=== PATIENT | male | born 1985 | race Caucasian/White ===

== ENCOUNTER 2018-05-06 18:55 | Emergency (ER) | payer OTHER ==
[~2018-05-06] VITALS: Ht 182.9 cm; Wt 81.6 kg
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
[2018-05-06] MEDS ORDERED: ORPHENADRINE 60 MG/2 ML (NORFLEX) AMP IM ONE (20:15)
[2018-05-06] MEDS ORDERED: CYCL5TAB PO (20:17)
[2018-05-06 20:28] VITALS: BP 126/86
== END 2018-05-06 20:28 | disposition home or self-care (01) ==
LOC: ER 18:57
DX: S09.90XA Unspecified injury of head, initial encounter (principal); S06.0X9A Concussion with loss of consciousness of unspecified duration, initial encounter; S13.9XXA Sprain of joints and ligaments of unspecified parts of neck, initial encounter; G43.909 Migraine, unspecified, not intractable, without status migrainosus; F41.9 Anxiety disorder, unspecified; F32.9 Major depressive disorder, single episode, unspecified; R40.2142 Coma scale, eyes open, spontaneous, at arrival to emergency department; R40.2252 Coma scale, best verbal response, oriented, at arrival to emergency department; R40.2362 Coma scale, best motor response, obeys commands, at arrival to emergency department; F17.210 Nicotine dependence, cigarettes, uncomplicated; V43.52XA Car driver injured in collision with other type car in traffic accident, initial encounter; Y92.411 Interstate highway as the place of occurrence of the external cause
CPT/HCPCS: 70450; 72125

== ENCOUNTER 2019-03-25 14:28 | Emergency (ER) | payer OTHER ==
[~2019-03-25] VITALS: Ht 182 cm; Wt 79.5 kg
[~2019-03-25 14:28] MED LIST: CYCL5TAB PO
--- NOTE | 2019-03-25 14:54 | Diagnostic Imaging Report ---
INDICATION: Chest pain. FINDINGS: The lungs are clear. The heart and vessels normal. There is no effusion or pneumothorax. Calcified benign granulomatous focus in the right lower lung noted. IMPRESSION: No acute appearing abnormality. Dictated by: Dictated on workstation # [id number]
--- NOTE | 2019-03-25 15:05 | NUR ---
Patient resting quietly in bed, shakiness has resolved.
[2019-03-25 15:25] LABS: WHITE BLOOD COUNT 9.7 10^3/uL (4.3-11.0)
[2019-03-25 15:26] LABS: BASOPHILS % (AUTO) 0 % (0-10); EOSINOPHILS # (AUTO) 0.3 10^3/uL (0.0-0.3); EOSINOPHILS % (AUTO) 3 % (0-10); HEMATOCRIT 47 % (40-54); HEMOGLOBIN 15.6 G/DL (13.3-17.7); LYMPHOCYTES # (AUTO) 2.9 X 10^3 (1.0-4.0); LYMPHOCYTES % (AUTO) 30 % (12-44); MEAN CORPUSCULAR HEMOGLOBIN 32 PG (25-34); MEAN CORPUSCULAR HGB CONC 33 G/DL (32-36); MEAN CORPUSCULAR VOLUME 95 FL (80-99); MEAN PLATELET VOLUME 9.1 FL (7.4-10.4); MONOCYTES # (AUTO) 0.7 X 10^3 (0.0-1.0); MONOCYTES % (AUTO) 8 % (0-12); NEUTROPHILS # (AUTO) 5.8 X 10^3 (1.8-7.8); NEUTROPHILS % (AUTO) 59 % (42-75); PLATELET COUNT 309 10^3/uL (130-400); RED CELL DISTRIBUTION WIDTH 13.9 % (10.0-14.5)
[2019-03-25 15:30] LABS: BILIRUBIN,TOTAL 0.5 MG/DL (0.1-1.0); BUN/CREATININE RATIO 11; CALCIUM 9.5 MG/DL (8.5-10.1); CARBON DIOXIDE 28 MMOL/L (21-32); CHLORIDE 101 MMOL/L (98-107); CREATININE SERUM 0.91 MG/DL (0.60-1.30); GFR ESTIMATED > 60; GLUCOSE 103 MG/DL (70-105); POTASSIUM 4.1 MMOL/L (3.6-5.0); SODIUM 139 MMOL/L (135-145)
[2019-03-25 15:31] LABS: ALANINE AMINOTRANSFERASE 12 U/L (0-55); ALBUMIN 4.4 GM/DL (3.2-4.5); ALKALINE PHOSPHATASE 91 U/L (40-136); TOTAL PROTEIN 7.5 GM/DL (6.4-8.2)
--- NOTE | 2019-03-25 15:57 | ED Cardiac General ---
History of Present Illness General Chief Complaint: Chest Pain Stated Complaint: CHEST PAIN Nursing Triage Note: Patient states has had intermittent chest pain for the past 3 days. Woke up with the chest pain at approx 0930 today, described as stabbing over the left chest, left shoulder, and left arm and rated at 4/10. States he was seen in clinic 3 days ago due to not being able to sleep and his blood pressure was elevated but is unsure of the reading. He was not put on hypertension medication but his dose of seroquel was increased and was started on another antidepression medication. Has slept since receiving this medication. Is shaking while answering questions but was able to walk to room without issue. Source: patient, family Exam Limitations: no limitations History of Present Illness Date Seen by Provider: Mar 25, 2019 Time Seen by Provider: 15:52 Initial Comments The patient is a 33-year-old white male who presented with complaints of left- sided chest pain. He did not participate much in the history however his did. She had insisted that he come here after he reported left sided chest pain at about 09 30 this morning shortly after arising. He reported that he had had some chest pain on of this week. He reported that he had gone to his usual provider in [place] on because he had been unable to sleep for several days. His Seroquel dose was increased from 100 mg daily to 200 mg daily and Zoloft was added. He took Zoloft on Tuesday and Tuesday but not today. He has a history of hypertension. Apparently his blood pressure is quite elevated on his visit to the provider however it was not addressed. It is significantly elevated here today. He smokes one pack of cigarettes per day and has a family history of heart disease. He cannot give much in the way of history about the manifestations of this and his relatives. His also reported some difficulty that she had noted in his ability to walk. He answered questions only in monotone and short sentences. He exhibited poor eye contact and mostly gazed at the ceiling. Timing/Duration: 4-6 hours Location: other (left chest and down left arm) Allergies and Home Medications Allergies Coded Allergies: No Known Drug Allergies (Unverified , 05/06/18) Home Medications Cyclobenzaprine HCl 5 Mg Tablet, 5 MG PO TID PRN for MUSCLE SPASMS Prescribed by: CRISTOPHER GARCIA on 11/17/18 2017 Patient Home Medication List Home Medication List Reviewed: Yes Review of Systems Review of Systems Constitutional: see HPI EENTM: No Symptoms Reported Respiratory: No Symptoms Reported Cardiovascular: See HPI, Chest Pain Gastrointestinal: No Symptoms Reported Genitourinary: No Symptoms Reported Musculoskeletal: muscle weakness Skin: no symptoms reported Psychiatric/Neurological: See HPI Endocrine: No Symptoms Reported Hematologic/Lymphatic: No Symptoms Reported Past Grjydok-Fuuuft-Xalbvg Hx Patient Social History Alcohol Use: Occasionally Uses Recreational Drug Use: Yes Drug of Choice: marijuana Type Used: Cigarettes 2nd Hand Smoke Exposure: Yes Recent Foreign Travel: No Contact w/Someone Who Travel: No Recent Infectious Disease Expo: No Recent Hopitalizations: No Physical Abuse: No Sexual Abuse: No Mistreated: No Fear: No Seasonal Allergies Seasonal Allergies: No Past Medical History Surgeries: No Respiratory: No Cardiac: No Neurological: Yes (cluster ANDUJAR) Headaches /Migraines Genitourinary: No Gastrointestinal: No Musculoskeletal: Yes (bulging disks) Chronic Back Pain Endocrine: No HEENT: No Cancer: No Psychosocial: Yes Anxiety, Depression Integumentary: No Blood Disorders: No Adverse Reaction/Blood Tranf: No Physical Exam Vital Signs Vital Signs - First Documented 03/25/19 14:30 Temp 37.4 Pulse 86 Resp 13 B/P (MAP) 158/115 (129) Pulse Ox 98 Capillary Refill : Less Than 3 Seconds Height, Weight, BMI Height: 6'0" Weight: 180lbs. oz. 81.627948bm; 24.00 BMI Method:Stated General Appearance: Other HEENT: Normal ENT Inspection Neck: Normal Inspection Respiratory: Chest Non Tender, Lungs Clear, Normal Breath Sounds, No Accessory Muscle Use, No Respiratory Distress Cardiovascular: Regular Rate, Rhythm, No Edema, No Gallop, No JVD, No Murmur, Normal Peripheral Pulses Gastrointestinal: Normal Bowel Sounds, No Organomegaly, No Pulsatile Mass, Non Tender Extremity: Normal Capillary Refill, Normal Inspection, Normal Range of Motion, Non Tender, No Calf Tenderness, No Pedal Edema Neurologic/Psychiatric: Alert, Oriented x3, No Motor/Sensory Deficits, Normal Mood/Affect Skin: Normal Color, Warm/Dry Lymphatic: No Adenopathy Progress/Results/Core Measures Results/Orders Lab Results Laboratory Tests Test 03/25/19 14:40 Range/Units White Blood Count 9.7 4.3-11.0 10^3/uL Red Blood Count 4.90 4.35-5.85 10^6/uL Hemoglobin 15.6 13.3-17.7 G/DL Hematocrit 47 40-54 % Mean Corpuscular Volume 95 80-99 FL Mean Corpuscular Hemoglobin 32 25-34 PG Mean Corpuscular Hemoglobin Concent 33 32-36 G/DL Red Cell Distribution Width 13.9 10.0-14.5 % Platelet Count 309 130-400 10^3/uL Mean Platelet Volume 9.1 7.4-10.4 FL Neutrophils (%) (Auto) 59 42-75 % Lymphocytes (%) (Auto) 30 12-44 % Monocytes (%) (Auto) 8 0-12 % Eosinophils (%) (Auto) 3 0-10 % Basophils (%) (Auto) 0 0-10 % Neutrophils # (Auto) 5.8 1.8-7.8 X 10^3 Lymphocytes # (Auto) 2.9 1.0-4.0 X 10^3 Monocytes # (Auto) 0.7 0.0-1.0 X 10^3 Eosinophils # (Auto) 0.3 0.0-0.3 10^3/uL Basophils # (Auto) 0.0 0.0-0.1 10^3/uL Sodium Level 139 135-145 MMOL/L Potassium Level 4.1 3.6-5.0 MMOL/L Chloride Level 101 98-107 MMOL/L Carbon Dioxide Level 28 21-32 MMOL/L Anion Gap 10 5-14 MMOL/L Blood Urea Nitrogen 10 7-18 MG/DL Creatinine 0.91 0.60-1.30 MG/DL Estimat Glomerular Filtration Rate > 60 BUN/Creatinine Ratio 11 Glucose Level 103 70-105 MG/DL Calcium Level 9.5 8.5-10.1 MG/DL Corrected Calcium 9.2 8.5-10.1 MG/DL Total Bilirubin 0.5 0.1-1.0 MG/DL Aspartate Amino Transf (AST/SGOT) 16 5-34 U/L Alanine Aminotransferase (ALT/SGPT) 12 0-55 U/L Alkaline Phosphatase 91 40-136 U/L Troponin I < 0.30 <0.30 NG/ML Total Protein 7.5 6.4-8.2 GM/DL Albumin 4.4 3.2-4.5 GM/DL My Orders Orders - CONNIE FERRER MD Cbc With Automated Diff (03/25/19 14:30) Comprehensive Metabolic Panel (03/25/19 14:30) Ekg Tracing (03/25/19 14:32) Chest 1 View Ap/Pa Only (03/25/19 14:32) Troponin I Fs (03/25/19 15:30) Vital Signs/I&O 03/25/19 14:30 Temp 37.4 Pulse 86 Resp 13 B/P (MAP) 158/115 (129) Pulse Ox 98 Blood Pressure Mean: 129 Departure Communication (Admissions) 1639 blood pressure has normalized. The patient laboratory is normal. He was walked down the hallway and showed a rather uneven gait but no evidence for fear of falling. He complained of tightness in his right hamstrings. His confirms that he has had gait abnormalities at times going back at least 4 years. 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 He took Depakote for a period of time but this did not seem to change anything with regard to the difficulties described. She also states that he is not currently taking anything for hypertension. It was discussed relative to the likelihood of neurology consult. They are planning to be here only for 1 week and it would be better to pursue this on return to [place]. For the moment I will add an antihypertensive. Impression Primary Impression: chest pain non-myocardial Additional Impression: hypertension Disposition: 01 HOME, SELF-CARE Condition: Stable/Unchanged Departure-Patient Inst. Decision time for Depature: 16:39 Referrals: NO,LOCAL PHYSICIAN (PCP) Primary Care Physician Patient Instructions: Chest Pain That Is Not Caused by the Heart (DC) CONNIE FERRER MD Mar 25, 2019 15:57
[2019-03-25] MEDS ORDERED: METO-370 PO (16:44)
[2019-03-25 16:48] VITALS: BP 126/100
== END 2019-03-25 16:52 | disposition home or self-care (01) ==
LOC: EDUNIT# 14:28 → ER FS 14:30
DX: R07.89 Other chest pain (principal); I10 Essential (primary) hypertension; G43.909 Migraine, unspecified, not intractable, without status migrainosus; F41.9 Anxiety disorder, unspecified; F32.9 Major depressive disorder, single episode, unspecified; F17.210 Nicotine dependence, cigarettes, uncomplicated; Z82.49 Family history of ischemic heart disease and other diseases of the circulatory system
CPT/HCPCS: 36415; 71045; 80053; 84484; 85025; 93005

== ENCOUNTER 2020-06-19 13:49 | Emergency (ER) | payer OTHER ==
[~2020-06-19 13:49] MED LIST changes: +METO50TA7 PO
[2020-06-19] MEDS ORDERED: morphine INJ 10 MG/ML 1ML (SYR OR VIAL) IVP STA (14:03)
[2020-06-19] MEDS ORDERED: NS IV 1000 ML 1,000 ML IV SCH (14:15)
[2020-06-19] MEDS ORDERED: ONDANSETRON 4 MG/2 ML (SDV) Z0FRAN IVP ONE (14:15)
--- NOTE | 2020-06-19 14:22 | ED General ---
General Chief Complaint: Abdominal/GI Problems Stated Complaint: ABD PAIN History of Present Illness Date Seen by Provider: Jun 19, 2020 Time Seen by Provider: 14:20 Initial Comments Patient presenting to the emergency department for evaluation of abdominal pain that started approximately 5:00 this morning and has persisted throughout the entire day. Patient describes it as a pressure sensation throughout the entire abdomen but is worse in the bilateral lower quadrants and possibly left lower quadrants and radiates to his epigastrium. He says he has had some nausea but no fevers chills vomiting diarrhea constipation dysuria hematuria or testicular pain. He denies any prior abdominal surgeries. He appears uncomfortable but is nontoxic. Allergies and Home Medications Allergies Coded Allergies: No Known Drug Allergies (Unverified , 05/06/18) Home Medications Cyclobenzaprine HCl 5 Mg Tablet, 5 MG PO TID PRN for MUSCLE SPASMS Prescribed by: CRISTOPHER GARCIA on 05/06/182016 Metoprolol Succinate 50 Mg Tab.er.24h, 50 MG PO DAILY Prescribed by: CONNIE FERRER on 03/25/19 1644 Patient Home Medication List Home Medication List Reviewed: Yes Review of Systems Review of Systems Constitutional: no symptoms reported EENTM: no symptoms reported Respiratory: no symptoms reported Cardiovascular: no symptoms reported Gastrointestinal: abdominal pain, nausea Genitourinary: no symptoms reported Musculoskeletal: no symptoms reported Skin: no symptoms reported Psychiatric/Neurological: No Symptoms Reported All Other Systems Reviewed Negative Unless Noted: Yes Past Czmuafd-Gnztmc-Quxdhx Hx Patient Social History Drug of Choice: marijuana Type Used: Cigarettes 2nd Hand Smoke Exposure: Yes Recent Foreign Travel: No Contact w/Someone Who Travel: No Recent Hopitalizations: No Seasonal Allergies Seasonal Allergies: No Past Medical History Surgeries: No Respiratory: No Cardiac: No Neurological: Yes (cluster ANDUJAR) Headaches /Migraines Genitourinary: No Gastrointestinal: No Musculoskeletal: Yes (bulging disks) Chronic Back Pain Endocrine: No HEENT: No Cancer: No Psychosocial: Yes Anxiety, Depression Integumentary: No Blood Disorders: No Adverse Reaction/Blood Tranf: No Physical Exam Vital Signs Vital Signs - First Documented 06/19/20 13:57 Temp 37.3 Pulse 85 Resp 16 B/P (MAP) 134/84 (101) Pulse Ox 97 O2 Delivery Room Air Capillary Refill : Height, Weight, BMI Height: 6'0" Weight: 180lbs. oz. 81.889852be; 24.00 BMI Method:Stated General Appearance: No Apparent Distress, WD/WN HEENT: PERRL/EOMI Neck: Supple Respiratory: No Respiratory Distress Cardiovascular: Regular Rate, Rhythm Gastrointestinal: Soft, Tenderness (diffuse abdominal tenderness to palpation with left lower quadrant tenderness more prominent but no rebound or guarding) Back: Normal Inspection Extremity: Normal Capillary Refill Neurologic/Psychiatric: Alert, Oriented x3 Skin: Warm/Dry Progress/Results/Core Measures Suspected Sepsis SIRS Temperature: Pulse: Respiratory Rate: Laboratory Tests 06/19/20 14:10: White Blood Count 11.8H Blood Pressure / Mean: Laboratory Tests 06/19/20 14:10: Creatinine 1.15, Platelet Count 249, Total Bilirubin 0.5 Results/Orders Lab Results Laboratory Tests Test 06/19/20 14:10 06/19/20 14:38 Range/Units White Blood Count 11.8 H 4.3-11.0 10^3/uL Red Blood Count 4.10 L 4.35-5.85 10^6/uL Hemoglobin 13.0 L 13.3-17.7 G/DL Hematocrit 38 L 40-54 % Mean Corpuscular Volume 92 80-99 FL Mean Corpuscular Hemoglobin 32 25-34 PG Mean Corpuscular Hemoglobin Concent 34 32-36 G/DL Red Cell Distribution Width 13.1 10.0-14.5 % Platelet Count 249 130-400 10^3/uL Mean Platelet Volume 9.5 7.4-10.4 FL Immature Granulocyte % (Auto) 0 % Neutrophils (%) (Auto) 66 42-75 % Lymphocytes (%) (Auto) 21 12-44 % Monocytes (%) (Auto) 8 0-12 % Eosinophils (%) (Auto) 5 0-10 % Basophils (%) (Auto) 0 0-10 % Neutrophils # (Auto) 7.8 1.8-7.8 X 10^3 Lymphocytes # (Auto) 2.5 1.0-4.0 X 10^3 Monocytes # (Auto) 0.9 0.0-1.0 X 10^3 Eosinophils # (Auto) 0.6 H 0.0-0.3 10^3/uL Basophils # (Auto) 0.0 0.0-0.1 10^3/uL Immature Granulocyte # (Auto) 0.0 0.0-0.1 10^3/uL Sodium Level 137 135-145 MMOL/L Potassium Level 3.8 3.6-5.0 MMOL/L Chloride Level 101 98-107 MMOL/L Carbon Dioxide Level 23 21-32 MMOL/L Anion Gap 13 5-14 MMOL/L Blood Urea Nitrogen 4 L 7-18 MG/DL Creatinine 1.15 0.60-1.30 MG/DL Estimat Glomerular Filtration Rate > 60 BUN/Creatinine Ratio 3 Glucose Level 125 H 70-105 MG/DL Calcium Level 9.1 8.5-10.1 MG/DL Corrected Calcium 9.0 8.5-10.1 MG/DL Total Bilirubin 0.5 0.1-1.0 MG/DL Aspartate Amino Transf (AST/SGOT) 22 5-34 U/L Alanine Aminotransferase (ALT/SGPT) 22 0-55 U/L Alkaline Phosphatase 93 40-136 U/L Total Protein 7.0 6.4-8.2 GM/DL Albumin 4.1 3.2-4.5 GM/DL Lipase 16 8-78 U/L Urine Color YELLOW Urine Clarity CLEAR Urine pH 7.5 5-9 Urine Specific [place] 1.015 L 1.016-1.022 Urine Protein NEGATIVE NEGATIVE Urine Glucose (UA) NEGATIVE NEGATIVE Urine Ketones NEGATIVE NEGATIVE Urine Nitrite NEGATIVE NEGATIVE Urine Bilirubin NEGATIVE NEGATIVE Urine Urobilinogen 0.2 < = 1.0 MG/DL Urine Leukocyte Esterase NEGATIVE NEGATIVE Urine RBC (Auto) NEGATIVE NEGATIVE Urine RBC NONE /HPF Urine WBC 2-5 /HPF Urine Squamous Epithelial Cells 0-2 /HPF Urine Crystals NONE /LPF Urine Bacteria NEGATIVE /HPF Urine Casts NONE /LPF Urine Mucus NEGATIVE /LPF Urine Culture Indicated NO My Orders Orders - YVONNE FISHER DO Cbc With Automated Diff (06/19/20 14:03) Comprehensive Metabolic Panel (06/19/20 14:03) Lipase (06/19/20 14:03) Ua Culture If Indicated (06/19/20 14:03) Ct Abdomen/Pelvis W (06/19/20 14:03) Iv/Invasive Line Insertion .IV start (06/19/20 14:03) Ns Iv 1000 Ml (Sodium Chloride 0.9%) (06/19/20 14:15) Ondansetron Injection (Zofran Injectio (06/19/20 14:15) Morphine Injection (Morphine Injection (06/19/20 14:03) Sodium Chloride Flush (Catheter Flush Sy (06/19/20 15:00) Ns (Ivpb) (Sodium Chloride 0.9% Ivpb Bag (06/19/20 15:00) Iohexol Injection (Omnipaque 350 Mg/Ml 1 (06/19/20 15:00) Received Contrast (Hold Metformin- Contr (06/19/20 15:00) Medications Given in ED Current Medications Medications Dose Ordered Sig/Dannielle Route Start Time Stop Time Status Last Admin Dose Admin Iohexol 100 ml ONCE ONCE IV 06/19/20 15:00 06/19/20 15:01 DC 06/19/20 15:15 100 ML Ondansetron HCl 4 mg ONCE ONCE IVP 06/19/20 14:15 06/19/20 14:16 DC 06/19/20 15:25 4 MG Sodium Chloride 10 ml NEEDED PRN IV 06/19/20 15:00 06/19/20 15:15 10 ML Sodium Chloride 100 ml ONCE ONCE IV 06/19/20 15:00 06/19/20 15:01 DC 06/19/20 15:15 100 ML Vital Signs/I&O 06/19/20 13:57 Temp 37.3 Pulse 85 Resp 16 B/P (MAP) 134/84 (101) Pulse Ox 97 O2 Delivery Room Air Capillary Refill : Progress Note : Progress Note Patient with diffuse abdominal tenderness to palpation so I will check labs CT imaging treat symptoms and reassess. Patient's labs show mild leukocytosis but no other laboratory and abdomen on he noted. The CT does show diffuse constipation but no surgical pathology. Pain improved and repeat abdominal exam is benign with no focal pain rebound or guarding. Will treat with laxatives and stool softeners and told him to follow primary care provider within 3-4 days for recheck and come back to the ED sooner with worsening pain fevers vomiting or other general concerns. Patient aware and agreeable with plan for discharge and verbalized understanding of the above instructions. Departure Impression Primary Impression: Abdominal pain Qualified Codes: R10.13 - Epigastric pain Additional Impressions: Constipation Qualified Codes: K59.00 - Constipation, unspecified Leukocytosis Disposition: HOME, SELF-CARE Condition: Stable Departure-Patient Inst. Referrals: SELF,MORRO BARCENAS (PCP/Family) Primary Care Physician Patient Instructions: Constipation, Adult (DC) Add. Discharge Instructions: Drink plenty of water and eat a high fiber diet and no junk food. Take otc stool softeners such as colace. Follow with PCP on tuesday. Thank you! All discharge instructions reviewed with patient and/or family. Voiced understanding. Scripts Polyethylene Glycol 3350 (Miralax) 17 Gm Powd.pack 17 GM PO BID for 5 Days, EACH Prov: YVONNE FISHER DO 06/19/20 YVONNE FISHER DO Jun 19, 2020 14:22
[2020-06-19 14:39] LABS: HEMATOCRIT 38 % (40-54); MEAN CORPUSCULAR HEMOGLOBIN 32 PG (25-34); MEAN CORPUSCULAR VOLUME 92 FL (80-99); WHITE BLOOD COUNT 11.8 10^3/uL (4.3-11.0)
[2020-06-19 14:40] LABS: BASOPHILS % (AUTO) 0 % (0-10); EOSINOPHILS # (AUTO) 0.6 10^3/uL (0.0-0.3); EOSINOPHILS % (AUTO) 5 % (0-10); LYMPHOCYTES # (AUTO) 2.5 X 10^3 (1.0-4.0); LYMPHOCYTES % (AUTO) 21 % (12-44); MEAN CORPUSCULAR HGB CONC 34 G/DL (32-36); MEAN PLATELET VOLUME 9.5 FL (7.4-10.4); MONOCYTES # (AUTO) 0.9 X 10^3 (0.0-1.0); MONOCYTES % (AUTO) 8 % (0-12); NEUTROPHILS # (AUTO) 7.8 X 10^3 (1.8-7.8); NEUTROPHILS % (AUTO) 66 % (42-75); PLATELET COUNT 249 10^3/uL (130-400)
[2020-06-19] MEDS ORDERED: IOHEXOL 350 MG/ML 100 ML (OMNIPAQUE 350) VIAL IV ONE (15:00)
[2020-06-19] MEDS ORDERED: CATHETER FLUSH 10 ML SYR IV PRN (15:00)
[2020-06-19] MEDS ORDERED: HOLD METFORMIN - RECEIVED CONTRAST 20 ML VIAL IV SCH (15:00)
[2020-06-19] MEDS ORDERED: NS 100 ML (IVPB) BAG IV ONE (15:00)
[2020-06-19 15:01] LABS: CLARITY,URINE CLEAR; COLOR,URINE YELLOW; GLUCOSE, URINE (UA) NEGATIVE (NEGATIVE); PH,URINE 7.5 (5-9); PROTEIN,URINE NEGATIVE (NEGATIVE)
[2020-06-19 15:02] LABS: BACTERIA,URINE NEGATIVE /HPF; BILIRUBIN,URINE NEGATIVE (NEGATIVE); KETONES,URINE NEGATIVE (NEGATIVE); LEUKOCYTE ESTERASE ,URINE NEGATIVE (NEGATIVE); NITRITE,URINE NEGATIVE (NEGATIVE); SQUAMOUS EPITHELIAL CELL,UR 0-2 /HPF
[2020-06-19 15:09] LABS: CARBON DIOXIDE 23 MMOL/L (21-32); CHLORIDE 101 MMOL/L (98-107); SODIUM 137 MMOL/L (135-145)
[2020-06-19 15:10] LABS: ALANINE AMINOTRANSFERASE 22 U/L (0-55); ALKALINE PHOSPHATASE 93 U/L (40-136); BILIRUBIN,TOTAL 0.5 MG/DL (0.1-1.0); BUN/CREATININE RATIO 3; CALCIUM 9.1 MG/DL (8.5-10.1); CREATININE SERUM 1.15 MG/DL (0.60-1.30); GFR ESTIMATED > 60; GLUCOSE 125 MG/DL (70-105)
[2020-06-19 15:11] LABS: ALBUMIN 4.1 GM/DL (3.2-4.5); POTASSIUM 3.8 MMOL/L (3.6-5.0)
[2020-06-19 15:12] LABS: LIPASE 16 U/L (8-78)
--- NOTE | 2020-06-19 15:49 | Diagnostic Imaging Report ---
EXAMINATION: CT Abdomen and Pelvis with intravenous contrast. TECHNIQUE: Multiple contiguous axial images were obtained through the abdomen and pelvis after the uneventful administration of intravenous contrast. All CT scans use one or more of the following dose optimizing techniques: automated exposure control, MA and/or KvP adjustment based on a patient size and exam type, or iterative reconstruction. HISTORY: diffuse pain COMPARISON: None available. FINDINGS: Lung bases: Bibasilar dependent atelectasis. Calcified granuloma within the right lower lobe. Solid organs: The liver is normal without focal lesion. The gallbladder is normal. There is no biliary ductal dilation. Pancreas is normal. Spleen is normal. Adrenal glands are normal. The kidneys are normal without hydronephrosis. A right renal cyst is present and requires no follow-up. Bowel: The stomach and small bowel are normal without obstruction. There is a large volume of stool throughout the colon. No findings of acute appendicitis. Peritoneum: There is no intraperitoneal free fluid or free air. No suspicious lymphadenopathy. Vasculature: Normal without aneurysm. Musculoskeletal: No suspicious osseous lesion or compression fracture. Pelvis: The prostate gland is normal. The urinary bladder is normal. IMPRESSION: 1. No acute abnormality in the abdomen or pelvis. 2. Large stool burden throughout the colon which can be seen in the clinical setting of constipation. Dictated by: Dictated on workstation # [id number]
[2020-06-19] MEDS ORDERED: POLY17PO6 PO (16:15)
[2020-06-19 16:32] VITALS: BP 134/84
== END 2020-06-19 16:32 | disposition home or self-care (01) ==
LOC: EDUNIT# 13:49 → ER FS 13:51
DX: R10.84 Generalized abdominal pain (principal); K59.00 Constipation, unspecified; D72.829 Elevated white blood cell count, unspecified; Z77.22 Contact with and (suspected) exposure to environmental tobacco smoke (acute) (chronic)
CPT/HCPCS: 36415; 74177; 80053; 81000; 83690; 85025; 85027

== ENCOUNTER 2023-05-08 14:29 | Emergency (ER) | payer OTHER ==
[~2023-05-08] VITALS: Ht 182 cm; Wt 73.0 kg
[~2023-05-08 14:29] MED LIST changes: +POLY17PO6 PO
[2023-05-08] MEDS ORDERED: PANTOPRAZOLE INJECTION 40 MG VIAL IV STA (14:44)
[2023-05-08] MEDS ORDERED: NS IV 1000 ML 1,000 ML IV STA (14:44)
[2023-05-08] MEDS ORDERED: ONDANSETRON INJECTION 4 MG/2 ML (SDV) IVP STA (14:44)
[2023-05-08 14:47] VITALS: BP 98/66
[2023-05-08 14:47] LABS: BASOPHILS # (AUTO) 0.1 10^3/uL (0.0-0.1); BASOPHILS % (AUTO) 0 % (0-10); EOSINOPHILS # (AUTO) 0.1 10^3/uL (0.0-0.3); EOSINOPHILS % (AUTO) 1 % (0-10); HEMATOCRIT 40 % (40-54); HEMOGLOBIN 13.3 g/dL (13.3-17.7); LYMPHOCYTES # (AUTO) 4.6 10^3/uL (1.0-4.0); LYMPHOCYTES % (AUTO) 27 % (12-44); MEAN CORPUSCULAR HEMOGLOBIN 33 pg (25-34); MEAN CORPUSCULAR HGB CONC 33 g/dL (32-36); MEAN CORPUSCULAR VOLUME 101 fL (80-99); MEAN PLATELET VOLUME 9.2 fL (9.0-12.2); MONOCYTES # (AUTO) 0.8 10^3/uL (0.0-1.0); MONOCYTES % (AUTO) 5 % (0-12); NEUTROPHILS # (AUTO) 11.4 10^3/uL (1.8-7.8); NEUTROPHILS % (AUTO) 67 % (42-75); PLATELET COUNT 300 10^3/uL (130-400)
--- NOTE | 2023-05-08 14:51 | ED GI ---
General Chief Complaint: Abdominal/GI Problems Stated Complaint: HEMATEMESIS Source of Information: Patient, Spouse History of Present Illness Date Seen by Provider: May 08, 2023 Time Seen by Provider: 14:33 Initial Comments 38-year-old male presenting by private vehicle with complaints of vomiting blood with clots since last night. He had thrown up into the sink as well as some toilet with blood and clots as well as some coffee-ground appearing substance just prior to coming to the emergency department. He states he had been throwing up since last night intermittently. He was feeling weak and "drained. He also felt like he was feeling cold at times. He does have a history of ulcers and used to take Nexium but is not taking it any longer. He states he is only taking lisinopril as a blood pressure medicine. He denies allergies to any medications. He denies any abdominal surgeries in the past. He does drink alcohol and states that he last had tea with liquor mixed into it yesterday. He did have some left-sided abdominal pain but it is not currently hurting on arrival to the ED. He denies having any dark tarry stools or blood in his stool. He denies any pain or burning with urination and no blood in his urine. His primary care provider is Dr. Nelson out of [place]. Timing/Duration: 12-24 Hours Severity/Quality: Mild, Aching Location: LUQ, LLQ Radiation: No Radiation Activities at Onset: None Modifying Factors: Worsens With Vomiting Associated Symptoms: No Back Pain, No Chest Pain, No Diaphoresis; Fatigue; No Headache, No Heartburn; Nausea/Vomiting; No Rash, No Shortness of Air, No Swelling/Mass in Abdomen, No Syncope; Weakness Allergies and Home Medications Allergies Coded Allergies: No Known Drug Allergies (Unverified , 05/06/18) Patient Home Medication List Home Medication List Reviewed: Yes Ondansetron (Ondansetron Odt) 4 Mg Tab.rapdis, 4 MG PO Q6H PRN for NAUSEA/VOMITING Prescribed by: ROSEMARY SEARS on 05/08/23 122 Pantoprazole Sodium (Pantoprazole Sodium) 40 Mg Tablet.dr 40 MG PO DAILY Prescribed by: ROSEMARY SEARS on 05/08/23 3620 Discontinued Medications Cyclobenzaprine HCl (Cyclobenzaprine HCl) 5 Mg Tablet, 5 MG PO TID PRN for MUSCLE SPASMS Prescribed by: CRISTOPHER GARCIA on 05/06/182016 Last Action: Discontinued Metoprolol Succinate (Metoprolol Succinate) 50 Mg Tab.er.24h, 50 MG PO DAILY Prescribed by: CONNIE FERRER on 03/25/19 1644 Last Action: Discontinued Polyethylene Glycol 3350 (Miralax) 17 Gm Powd.pack, 17 GM PO BID Prescribed by: YVONNE FISHER on 06/19/20 1615 Last Action: Discontinued Review of Systems Review of Systems Constitutional: chills; No fever; weakness EENTM: No Symptoms Reported Respiratory: No Symptoms Reported Cardiovascular: No Symptoms Reported Gastrointestinal: See HPI Genitourinary: No Symptoms Reported Musculoskeletal: no symptoms reported Skin: no symptoms reported Psychiatric/Neurological: No Symptoms Reported Past Yywfjvv-Wlxxtc-Sulxck Hx Patient Social History Tobacco Use?: Yes Substance use?: Yes Substance type: Marijuana Alcohol Use?: Yes Alcohol type: Hard Liquor Seasonal Allergies Seasonal Allergies: No Past Medical History Surgery/Hospitalization HX: Hypertension Surgeries: No Respiratory: No Cardiac: Yes High Cholesterol, Hypertension Neurological: Yes (cluster ANDUJAR) Headaches /Migraines Genitourinary: No Gastrointestinal: No Musculoskeletal: Yes (bulging disks) Chronic Back Pain Endocrine: No HEENT: No Cancer: No Psychosocial: Yes Sleep Difficulties, Anxiety, Depression Integumentary: No Blood Disorders: No Adverse Reaction/Blood Tranf: No Physical Exam Vital Signs Vital Signs - First Documented 05/08/23 14:47 Pulse 98 Resp 16 B/P (MAP) 98/66 (77) Pulse Ox 99 O2 Delivery Room Air Capillary Refill : Height/Weight/BMI Height: 6'0" Weight: 180lbs. oz. 81.058807ru; 24.00 BMI Method:Stated General Appearance: no apparent distress HEENT: PERRL/EOMI, pharynx normal Respiratory: chest non-tender, lungs clear, normal breath sounds, no respiratory distress, no accessory muscle use Cardiovascular: normal peripheral pulses, regular rate, rhythm Gastrointestinal: normal bowel sounds, non tender, soft, no pulsatile mass Rectal: deferred Extremities: normal range of motion, non-tender, normal capillary refill Neurologic/Psychiatric: alert, oriented x 3 Skin: normal color, warm/dry Progress/Results/Core Measures Results/Orders Lab Results Laboratory Tests Test 05/08/23 14:36 05/08/23 14:46 05/08/23 16:00 Range/Units White Blood Count 17.0 H 4.3-11.0 10^3/uL Red Blood Count 4.02 L 4.30-5.52 10^6/uL Hemoglobin 13.3 12.7 L 13.3-17.7 g/dL Hematocrit 40 38 L 40-54 % Mean Corpuscular Volume 101 H 80-99 fL Mean Corpuscular Hemoglobin 33 25-34 pg Mean Corpuscular Hemoglobin Concent 33 32-36 g/dL Red Cell Distribution Width 13.8 10.0-14.5 % Platelet Count 300 130-400 10^3/uL Mean Platelet Volume 9.2 9.0-12.2 fL Immature Granulocyte % (Auto) 0 % Neutrophils (%) (Auto) 67 42-75 % Lymphocytes (%) (Auto) 27 12-44 % Monocytes (%) (Auto) 5 0-12 % Eosinophils (%) (Auto) 1 0-10 % Basophils (%) (Auto) 0 0-10 % Neutrophils # (Auto) 11.4 H 1.8-7.8 10^3/uL Lymphocytes # (Auto) 4.6 H 1.0-4.0 10^3/uL Monocytes # (Auto) 0.8 0.0-1.0 10^3/uL Eosinophils # (Auto) 0.1 0.0-0.3 10^3/uL Basophils # (Auto) 0.1 0.0-0.1 10^3/uL Immature Granulocyte # (Auto) 0.1 0.0-0.1 10^3/uL Neutrophils % (Manual) 62 % Lymphocytes % (Manual) 35 % Monocytes % (Manual) 3 % Prothrombin Time 13.2 12.2-14.7 SEC INR Comment 1.0 0.8-1.4 Activated Partial Thromboplast Time 24 24-35 SEC Sodium Level 138 135-145 MMOL/L Potassium Level 4.2 3.6-5.0 MMOL/L Chloride Level 101 98-107 MMOL/L Carbon Dioxide Level 27 21-32 MMOL/L Anion Gap 10 5-14 MMOL/L Blood Urea Nitrogen 30 H 7-18 MG/DL Creatinine 0.99 0.60-1.30 MG/DL Estimat Glomerular Filtration Rate 99 BUN/Creatinine Ratio 30 Glucose Level 128 H 70-105 MG/DL Calcium Level 8.9 8.5-10.1 MG/DL Corrected Calcium 8.9 8.5-10.1 MG/DL Total Bilirubin 0.7 0.1-1.0 MG/DL Aspartate Amino Transf (AST/SGOT) 14 5-34 U/L Alanine Aminotransferase (ALT/SGPT) 9 0-55 U/L Alkaline Phosphatase 97 40-136 U/L Total Protein 6.9 6.4-8.2 GM/DL Albumin 4.0 3.2-4.5 GM/DL Lipase 15 8-78 U/L Serum Alcohol < 10 <10 MG/DL Urine Color YELLOW Urine Clarity CLEAR Urine pH 7.0 5-9 Urine Specific [place] <=1.005 1.016-1.022 Urine Protein NEGATIVE NEGATIVE Urine Glucose (UA) NEGATIVE NEGATIVE Urine Ketones NEGATIVE NEGATIVE Urine Nitrite NEGATIVE NEGATIVE Urine Bilirubin NEGATIVE NEGATIVE Urine Urobilinogen 0.2 < = 1.0 MG/DL Urine Leukocyte Esterase NEGATIVE NEGATIVE Urine RBC (Auto) NEGATIVE NEGATIVE Urine RBC RARE /HPF Urine WBC NONE /HPF Urine Squamous Epithelial Cells 2-5 /HPF Urine Crystals NONE /LPF Urine Bacteria TRACE /HPF Urine Casts PRESENT /LPF Urine Hyaline Casts 0-2 H /LPF Urine Mucus MODERATE H /LPF Urine Culture Indicated NO Urine Opiates Screen NEGATIVE NEGATIVE Urine Oxycodone Screen NEGATIVE NEGATIVE Urine Methadone Screen NEGATIVE NEGATIVE Urine Barbiturates Screen NEGATIVE NEGATIVE Ur Tricyclic Antidepressants Screen NEGATIVE NEGATIVE Urine Phencyclidine Screen NEGATIVE NEGATIVE Urine Amphetamines Screen NEGATIVE NEGATIVE Urine Methamphetamines Screen NEGATIVE NEGATIVE Urine Benzodiazepines Screen POSITIVE H NEGATIVE Urine Cocaine Screen NEGATIVE NEGATIVE Urine Cannabinoids Screen POSITIVE H NEGATIVE My Orders Orders - ROSEMARY SEARS MD Comprehensive Metabolic Panel (05/08/23 14:43) Lipase (05/08/23 14:43) Ua Culture If Indicated (05/08/23 14:43) Ed Iv/Invasive Line Start (05/08/23 14:43) Cbc And Automated Diff (05/08/23 14:43) Ct Abdomen/Pelvis W (05/08/23 14:43) Protime With Inr (05/08/23 14:43) Partial Thromboplastin Time (05/08/23 14:43) Alcohol (05/08/23 14:43) Drug Screen Stat (Urine) (05/08/23 14:43) Ns Iv 1000 Ml (Ns Iv 1000 Ml) (05/08/23 14:44) Pantoprazole Injection (Pantoprazole Inj (05/08/23 14:44) Ondansetron Injection (Ondansetron Inj (05/08/23 14:44) Manual Differential (05/08/23 14:36) Iohexol Injection (Omnipaque 350 Mg/Ml 1 (05/08/23 15:00) Received Contrast (Hold Metformin- Contr (05/08/23 15:00) Ns (Ivpb) 100 Ml (Sodium Chloride 0.9% 1 (05/08/23 15:00) Hemoglobin (05/08/23 15:57) Hematocrit (05/08/23 15:57) Medications Given in ED Current Medications Medications Dose Ordered Sig/Dannielle Route Start Time Stop Time Status Last Admin Dose Admin Iohexol 80 ml ONCE ONCE IV 05/08/23 15:00 05/08/23 15:01 DC 05/08/23 15:03 80 ML Sodium Chloride 100 ml ONCE ONCE IV 05/08/23 15:00 05/08/23 15:01 DC 05/08/23 15:03 80 ML Vital Signs/I&O 05/08/23 14:47 Pulse 98 Resp 16 B/P (MAP) 98/66 (77) Pulse Ox 99 O2 Delivery Room Air Progress Progress Note #1: Progress Note Differential diagnosis includes peptic ulcer disease, gastritis, alcohol abuse, liver failure, June-Jeffries tear, anemia. Establish peripheral IV access and send labs for complete blood count, comprehensive metabolic profile, lipase, pro time/INR, PTT, EtOH, urinalysis, urine drug screen. CT scan of the abdomen and pelvis with IV contrast to look for acute pathology that would contribute to hematemesis. Administer normal saline 1 L IV fluid bolus for hydration, Zofran 4 mg IV for nausea and vomiting, pantoprazole 40 mg IV for possible gastritis or peptic ulcer disease. Progress Note #2: Time: 15:35 Progress Note Complete blood count showed a stable hemoglobin of 13.3 with 300 platelets. On June 19, 2020 his hemoglobin was 13 at that time. He does currently have an elevated white blood cell count of 17,000 which may be more of a stress reaction as he is not exhibiting other signs of infection. His comprehensive metabolic profile did not show any acute significant electrolyte abnormality. He had a slight elevation of his BUN to 30 and a creatinine of 0.99. Lipase was normal at 15. The BUN might be slightly elevated from dehydration or it could be that he is metabolizing blood in his GI tract. Alcohol level was less than 10 and his coagulation factors were normal. His CT scan of the abdomen and pelvis did not show any obstruction on her perforation or free air. He did have some thickening of the gastric wall and part of his stomach which could go with gastritis. He has had no emesis here in the ED and is hemodynamically stable. Will recheck hgb to ensure it has not dropped drastically and have patient continue on Pantoprazole. Follow up with Dr. Nelson as he likely needs EGD to look for PUD. Liquid diet for 24-48 hours to let his stomach rest and heal and then follow a bland diet. Progress Note #3: Time: 16:14 Progress Note Hemoglobin went down slightly to 12.7 from 13.3. He is hemodynamically stable otherwise. Will discharge as planned above. 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 Advised if he has worsening symptoms or is having uncontrollable hematemesis he needs to be seen again. Diagnostic Imaging Diagonstic Imaging: CT Plain Films/CT/US/NM/MRI: abdomen, pelvis Comments NAME: JANES CONNELLY [facility] REC#: [id number] PT STATUS: REG ER : 1985 PHYSICIAN: ROSEMARY SEARS MD ADMIT DATE: 05/08/23/ER FS Draft Date of Exam:05/08/23 CT ABDOMEN/PELVIS W PROCEDURE: CT abdomen and pelvis with contrast. TECHNIQUE: Multiple contiguous axial images were obtained through the abdomen and pelvis after administration of intravenous contrast. Auto Exposure Controls were utilized during the CT exam to meet ALARA standards for radiation dose reduction. All CT scans use one or more of the following dose optimizing techniques: automated exposure control, MA and/or KvP adjustment based on patient size and exam type or iterative reconstruction. INDICATION: Abdominal pain and vomiting. COMPARISON: 06/19/2020. FINDINGS: The lung bases demonstrate no evidence of pneumonia or edema. There is no pleural or pericardial fluid. The liver demonstrates no evidence of a focal intrahepatic abnormality. Hepatic and portal veins are patent. The gallbladder is nondistended. There is no radiodense stone or biliary dilatation. Pancreas is unremarkable. The spleen is normal in size. There is no adrenal mass. The kidneys are nonobstructed and enhance normally. There is a simple right renal cyst. There is some questionable gastric wall thickening of the distal stomach near the pylorus. Proximal gastric mucosa unremarkable. There is no abnormal small or large bowel dilatation. The colon is decompressed. There is no finding of an appendicitis. There is no focal colonic thickening or evidence of pericolonic fat stranding. The urinary bladder is unremarkable. There is no free air. There is no abscess. There is no free fluid in the abdomen or pelvis. There is no finding of adenopathy. Aorta is unremarkable. There is no acute osseous abnormality. IMPRESSION: 1. Questionable edematous thickening of the distal stomach which could reflect a small zone of gastritis. There is no finding of small or large bowel obstruction. 2. No free air, free fluid or abscess. 3. No evidence of biliary dilatation or hydronephrosis. Dictated on workstation # [id number] Dict: 05/08/23 1508 Trans: 05/08/23 1526 PJE [id number] Interpreted by: CHAPIN HERNANDEZ MD Electronically signed by: Reviewed: Reviewed by Me Departure Impression Primary Impression: Hematemesis/vomiting blood Qualified Codes: K92.0 - Hematemesis Additional Impression: Gastritis Qualified Codes: K29.01 - Acute gastritis with bleeding Disposition: HOME, SELF-CARE Condition: Stable Departure-Patient Inst. Decision time for Depature: 16:16 Referrals: JANES NELSON MD (PCP) Primary Care Physician Patient Instructions: Gastritis ED, Gastrointestinal Bleeding (DC), Ulcer and Gastritis Diet Add. Discharge Instructions: Follow-up with liquid diet for the next 24 to 48 hours. After that follow-up with the bland diet for ulcers and gastritis. Make sure that you are taking the acid cigarette inspector, pantoprazole, daily to help the lining of your stomach heal. Follow up with Dr. Nelson as soon as possible as he will likely need to do a scope and run a camera down to look at the lining of the stomach to look for an ulcer. If you have continued vomiting blood, worsening symptoms or severe abdominal pain return or go directly to [facility] as you would likely need admitted for treatment and further testing. All discharge instructions reviewed with patient and/or family. Voiced understanding. Scripts Ondansetron (Ondansetron Odt) 4 Mg Tab.rapdis 4 MG PO Q6H PRN for NAUSEA/VOMITING for 5 Days, #20 TAB 0 Refills Prov: ROSEMARY SEARS MD 05/08/23 Pantoprazole Sodium (Pantoprazole Sodium) 40 Mg Tablet.dr 40 MG PO DAILY for gastritis for 30 Days, #30 TAB 0 Refills Prov: ROSEMARY SEARS MD 05/08/23 Work/School Note: Work Release Form Date Seen in the Emergency Department: May 08, 2023 Return to Work: May 10, 2023 Restrictions: Return-No Vomiting(24hrs) ROSEMARY SEARS MD May 08, 2023 14:50
[2023-05-08] MEDS ORDERED: IOHEXOL 350 MG/ML 100 ML (OMNIPAQUE 350) VIAL IV ONE (15:00)
[2023-05-08] MEDS ORDERED: HOLD METFORMIN - RECEIVED CONTRAST 20 ML VIAL IV SCH (15:00)
[2023-05-08] MEDS ORDERED: NS 100 ML (IVPB) BAG IV ONE (15:00)
[2023-05-08 15:01] LABS: CHLORIDE 101 MMOL/L (98-107); POTASSIUM 4.2 MMOL/L (3.6-5.0); PROTHROMBIN TIME PATIENT 13.2 SEC (12.2-14.7); SODIUM 138 MMOL/L (135-145)
[2023-05-08 15:02] LABS: BILIRUBIN,TOTAL 0.7 MG/DL (0.1-1.0); CALCIUM 8.9 MG/DL (8.5-10.1); LIPASE 15 U/L (8-78)
[2023-05-08 15:05] LABS: LYMPHOCYTES % (MANUAL) 35 %; MONOCYTES % (MANUAL) 3 %; NEUTROPHILS % (MANUAL) 62 %
[2023-05-08 15:07] LABS: ALANINE AMINOTRANSFERASE 9 U/L (0-55); ALKALINE PHOSPHATASE 97 U/L (40-136); BUN/CREATININE RATIO 30; CARBON DIOXIDE 27 MMOL/L (21-32); CREATININE SERUM 0.99 MG/DL (0.60-1.30); GFR ESTIMATED 99; GLUCOSE 128 MG/DL (70-105); TOTAL PROTEIN 6.9 GM/DL (6.4-8.2)
--- NOTE | 2023-05-08 15:27 | Diagnostic Imaging Report ---
PROCEDURE: CT abdomen and pelvis with contrast. TECHNIQUE: Multiple contiguous axial images were obtained through the abdomen and pelvis after administration of intravenous contrast. Auto Exposure Controls were utilized during the CT exam to meet ALARA standards for radiation dose reduction. All CT scans use one or more of the following dose optimizing techniques: automated exposure control, MA and/or KvP adjustment based on patient size and exam type or iterative reconstruction. INDICATION: Abdominal pain and vomiting. COMPARISON: 06/19/2020. FINDINGS: The lung bases demonstrate no evidence of pneumonia or edema. There is no pleural or pericardial fluid. The liver demonstrates no evidence of a focal intrahepatic abnormality. Hepatic and portal veins are patent. The gallbladder is nondistended. There is no radiodense stone or biliary dilatation. Pancreas is unremarkable. The spleen is normal in size. There is no adrenal mass. The kidneys are nonobstructed and enhance normally. There is a simple right renal cyst. There is some questionable gastric wall thickening of the distal stomach near the pylorus. Proximal gastric mucosa unremarkable. There is no abnormal small or large bowel dilatation. The colon is decompressed. There is no finding of an appendicitis. There is no focal colonic thickening or evidence of pericolonic fat stranding. The urinary bladder is unremarkable. There is no free air. There is no abscess. There is no free fluid in the abdomen or pelvis. There is no finding of adenopathy. Aorta is unremarkable. There is no acute osseous abnormality. IMPRESSION: 1. Questionable edematous thickening of the distal stomach which could reflect a small zone of gastritis. There is no finding of small or large bowel obstruction. 2. No free air, free fluid or abscess. 3. No evidence of biliary dilatation or hydronephrosis. Dictated by: Dictated on workstation # [id number]
[2023-05-08 15:45] LABS: BILIRUBIN,URINE NEGATIVE (NEGATIVE); CLARITY,URINE CLEAR; COLOR,URINE YELLOW; GLUCOSE, URINE (UA) NEGATIVE (NEGATIVE); KETONES,URINE NEGATIVE (NEGATIVE); LEUKOCYTE ESTERASE ,URINE NEGATIVE (NEGATIVE); NITRITE,URINE NEGATIVE (NEGATIVE); PROTEIN,URINE NEGATIVE (NEGATIVE)
[2023-05-08 15:47] LABS: RBC,URINE RARE /HPF
[2023-05-08 15:48] LABS: BACTERIA,URINE TRACE /HPF; HYALINE CASTS, URINE 0-2 /LPF
[2023-05-08 15:55] LABS: AMPHETAMINE SCREEN, URINE NEGATIVE (NEGATIVE); BARBITURATE SCREEN URINE NEGATIVE (NEGATIVE); CANNABINOID SCREEN, URINE POSITIVE (NEGATIVE); COCAINE SCREEN URINE NEGATIVE (NEGATIVE); METHADONE STAT NEGATIVE (NEGATIVE); OPIATE SCREEN URINE NEGATIVE (NEGATIVE); OXYCODONE STAT NEGATIVE (NEGATIVE); TRICYCLIC ANTIDEPRESSANTS SCRE NEGATIVE (NEGATIVE)
[2023-05-08] MEDS ORDERED: ONDA4TAB11 PO (15:57)
[2023-05-08] MEDS ORDERED: PANT40TA52 PO (15:57)
[2023-05-08 16:11] LABS: HEMOGLOBIN 12.7 g/dL (13.3-17.7)
== END 2023-05-08 16:25 | disposition home or self-care (01) ==
LOC: EDUNIT# 14:29 → ER FS 14:31
DX: K92.0 Hematemesis (principal); K29.70 Gastritis, unspecified, without bleeding
CPT/HCPCS: 36415; 74177; 80053; 80306; 81000; 83690; 85007; 85014; 85018; 85027; 85610; 85730; 96361; 96374; 96375; 99284; G0480; 80320; Q9967